=== PATIENT | male | born 1975 | race Caucasian/White ===

== ENCOUNTER 2017-01-28 19:53 | Emergency (ER) | payer BC ==
[~2017-01-28] VITALS: Ht 188 cm; Wt 128.5 kg
[2017-01-28 20:09] VITALS: TEMP 36.6; Ht 188 cm; Wt 128.5 kg
[2017-01-28] MEDS ORDERED: OXYCODONE HCL IR 5 MG TAB (IMMEDIATE RELEASE) PO STA (20:29)
[2017-01-28] MEDS ORDERED: OXYCODONE IR HOME PACK PO STA (20:29)
[2017-01-28] MEDS ORDERED: AMOXICIL/CLAVU 875MG HOME PACK PO STA (20:29)
[2017-01-28] MEDS ORDERED: AMOXICILLIN/CLAVULANATE TAB 875 MG TAB PO STA (20:29)
[2017-01-28] MEDS ORDERED: PRLSR20 PO (20:34)
[2017-01-28] MEDS ORDERED: ACET-1256 PO (20:35)
[2017-01-28] MEDS ORDERED: OXYC1TAB3 PO (20:37)
[2017-01-28] MEDS ORDERED: AMOX875T PO (20:37)
--- NOTE | 2017-01-28 20:39 | EMERGENCY ROOM VISIT NOTE ---
ED Visit Note First contact with patient: 20:21 CHIEF COMPLAINT: "Mouth pain". HISTORY OF PRESENT ILLNESS: This 41-year-old male patient presented to the emergency department via private vehicle accompanied by female with a progressive toothache for past few hours. The patient believes it is coming from the top front tooth. The patient states that he was eating a sandwich earlier, and believes that it may have been too hard and when he bit down he noticed pain in the tooth, that has been progressively worsening. The pain is now steady and severe and radiates to the face. The patient is to call a dentist first thing tomorrow morning, and notes that he is going to call [facility]. They rate their pain a 8-9/10 and the ibuprofen he has been taking has not relieved the pain. Denies facial swelling or fever. The patient denies any discharge from the mouth. The patient states that he did make multiple mistakes when he was younger, and believes he is now painful. REVIEW OF SYSTEMS: A 6 system review of systems was completed with positives and pertinent negatives listed in the HPI. ALLERGIES: No known allergies MEDICATIONS: As noted below PMH: No pertinent past medical history SOCIAL HISTORY: Patient lives at home. PHYSICAL EXAM: Vitals are noted on the nurse's note and reviewed by myself. Vital signs stable. Temperature 36.6C orally. GENERAL: 41-year-old male, in no acute distress, nondiaphoretic, well-developed well-nourished. Mouth: The front top tooth is very carious and the gum is swollen and tender around it, without any discharge or signs of an abscess. The remainder of the pharynx and tonsils are without erythema, edema, or exudate. The airway is patent. There is no facial swelling, cervical or submandibular lymphadenopathy. The patient appears uncomfortable and in pain. The patient has overall poor dental hygiene. EARS: External auditory canals clear, tympanic membranes pearly kamara without erythema or effusion bilaterally. ED COURSE: Patient was seen and evaluated as above. The patient was in visible pain secondary to the poor dentition. No abscess was appreciated. The patient noted that he was not driving, therefore was given 1 OxyIR tablet as well as one Augmentin tablet followed by home pack for both of these. He was also provided a short-term prescription for both. I do believe this is reasonable, and the [place] drug monitoring system was checked without evidence of problem. The patient is to call his dentist first thing tomorrow morning to schedule follow-up. I do not suspect any encephalitis, meningitis, Alf angina or any other life-threatening ailments or process. Patient was educated upon management, had questions answered prior to discharge, and was discharged home in good condition. In the evaluation and treatment of this patient, the following differential diagnoses were considered: Periapical Abscess, Osteonecrosis of the Jaw, Dental Fracture, Dental Caries, Alf's Angina, Vincent's Angina, Facial Cellulitis. Current/Historical Medications Scheduled Amoxicillin & Pot Clavulanate (Augmentin 875-125 mg), 1 TAB PO BID Omeprazole (Prilosec), 20 MG PO DAILY Scheduled PRN Acetaminophen (Tylenol), 500 MG PO BID PRN for Pain Oxycodone Ir (Roxicodone Ir), 1-2 TAB PO Q4H PRN for Pain Vital Signs Date Time Temp Pulse Resp B/P Pulse Ox O2 Delivery O2 Flow Rate FiO2 01/28/17 20:47 93 18 127/88 94 Room Air 01/28/17 20:09 36.6 92 18 136/88 95 Room Air Medications Administered Medications (Trade) Dose Ordered Sig/Emery Route Start Time Stop Time Status Last Admin Dose Admin Oxycodone HCl (Roxicodone Immediate Rel Tab) 5 mg NOW STAT PO 01/28/17 20:29 01/28/17 20:31 DC 01/28/17 20:43 5 MG Oxycodone HCl (Roxicodone Immediate Rel 5MG Home Pack) 1 homepack UD STAT PO 01/28/17 20:29 01/28/17 20:31 DC 01/28/17 20:44 1 HOMEPACK Amoxicillin/ Clavulanate Potassium (Augmentin 875MG Home Pack) 1 homepack UD STAT PO 01/28/17 20:29 01/28/17 20:31 DC 01/28/17 20:44 1 HOMEPACK Amoxicillin/ Clavulanate Potassium (Augmentin Tab) 875 mg ONE STAT PO 01/28/17 20:29 01/28/17 20:31 DC 01/28/17 20:43 875 MG Departure Information Impression Primary Impression: Tooth pain with chewing Additional Impression: Dental caries Dispostion Home / Self-Care Condition GOOD Prescriptions Amoxicillin & Pot Clavulanate (Augmentin 875-125 mg) 1 Tab Tab 1 TAB PO BID for 9 Days, #18 TAB Prov: Joseph Wellington PA-C 01/28/17 Oxycodone Ir (Roxicodone Ir) 5 Mg Tab 1-2 TAB PO Q4H Y for Pain, #15 TAB For Initial Treatment Prov: Joseph Wellington PA-C 01/28/17 Patient Instructions [facility] Additional Instructions You have been treated in the Emergency Department for Dental Pain. You have received pain medicine in the emergency department which impairs your ability to operate a vehicle. It is illegal for you to drive after receiving these medicines. You have been prescribed Oxy IR to be used for pain control. This is a narcotic medication. You cannot drive or consume alcohol while on this medicine. This medicine should only be used for pain that cannot be controlled with over-the- counter pain medicines. You were prescribed Augmentin to be taken twice daily. This is an antibiotic. All antibiotics have the potential to cause diarrhea. Stop this medication and contact a medical provider if you were to develop any significant adverse side effects including: wheezing, shortness of breath, passing out, vomiting, or a diffuse rash. Always take antibiotics as directed and COMPLETE the ENTIRE course regardless of the improvement of your symptoms. For pain control, you can use the following [id number] medicines (if >12 yo): - Regular strength (325mg/tab) Tylenol (acetaminophen) 2 tabs every 4-6 hours as needed. Do not exceed 12 tablets in a 24 hour period. Avoid taking more than 4 grams (4000 mg) of Tylenol per day. This includes any other sources of acetaminophen you may take on a regular basis. - Regular strength (200 mg/tab) Advil (ibuprofen) 1-2 tabs every 4-6 hours as needed. Do not exceed a dose of 3200 mg per day. Refrain from smoking cigarettes or using chewing tobacco until you have been evaluated by your dentist. Keeping beverages lukewarm and consuming soft foods can decrease your pain. Warm compresses over the affected area may offer some relief. You MUST seek evaluation of your dental pain by a dentist following your visit to the Emergency Department. The Emergency Department is not capable of treating dental issues long-term. You should call your dentist as soon as possible to make an appointment for evaluation of your dental pain. As we discussed, and you noted, please call your dentist first thing tomorrow morning and schedule follow-up. Return to the emergency department if you develop the following symptoms despite treatment course outlined above: fever, intractable pain, increased redness, swelling, or purulent discharge. Please return to the emergency department with any new/concerning symptoms. Problem Qualifiers
[2017-01-28 20:47] VITALS: BP 127/88; PULSE 93; O2SAT 94
== END 2017-01-28 20:49 | disposition home or self-care (01) ==
LOC: C.EDB 19:57 → C.EDD 20:49
DX: K08.89 Other specified disorders of teeth and supporting structures (principal); K02.9 Dental caries, unspecified